=== PATIENT | male | born 1980 | race Caucasian/White ===

== ENCOUNTER → 2017-05-20 | Outpatient (CLI) | payer BC | END | disposition home or self-care (01) | LOC: RAD 16:29 | DX: R07.89 Other chest pain (principal); R05 Cough; R50.9 Fever, unspecified; R19.7 Diarrhea, unspecified; R42 Dizziness and giddiness; R53.1 Weakness; Z77.098 Contact with and (suspected) exposure to other hazardous, chiefly nonmedicinal, chemicals ==